=== PATIENT | female | born 1985 | race Caucasian/White ===

== ENCOUNTER → 2018-08-29 | Outpatient (REF) | payer OTHER | LOC: M SFHCLERA 10:45 | PROVIDERS: ATTEND Physician Assistant | DX: J02.9 Acute pharyngitis, unspecified (principal) ==

== ENCOUNTER → 2019-01-04 | Outpatient (REF) | payer OTHER | LOC: M SFHCLERA 20:46 | PROVIDERS: ATTEND Physician Assistant | DX: R09.81 Nasal congestion (principal) ==